=== PATIENT | male | born 1945 | race Caucasian/White ===

== ENCOUNTER 2017-09-12 12:29 | Emergency (ER) | payer MEDICARE, BC ==
[~2017-09-12] VITALS: Ht 175.3 cm; Wt 108.9 kg
[2017-09-12] MEDS ORDERED: Tetanus/Diptheria/Pertussis Vaccine 0.5ml Syr IM ONE (13:00)
--- NOTE | 2017-09-12 14:08 | Emergency Room Report ---
History of Present Illness General Chief Complaint: Laceration Source: Patient Present Illness HPI 72 YO Male S/P mechanical Trip and fall in a parking lot, he C/O left shoulder pain & tenderness in addition to open wound on the left forearm. Pt. denies pain currently. States Pain in his left shoulder is exacerbated to 6/10 in severity upon movement. Reports history of shoulder fracture in the past and states that he has a left elbow implant. Denies left elbow pain. Last tetanus unknown. Denies hitting his head, or LOC. Takes ASA daily. Denies CP, Palpitations, LOC, AMS, dizziness, Changes in Vision, Sensation, paresthesias, or a sudden severe headache. Allergies: Coded Allergies: PENICILLINS (Verified Allergy, Unknown, 09/12/17) Patient History Past Medical History: see triage record, HTN, CAD Pertinent Family History: none Reviewed Nursing Documentation: PMH: Agreed; PSxH: Agreed Nursing Documentation-PMH Past Medical History: No History, Except For Hx Cardiac Problems: Yes Hx Hypertension: Yes Hx Asthma: Yes Review of Systems All Other Systems: negative except mentioned in HPI Physical Exam Vital Signs Date Time Temp Pulse Resp B/P (MAP) Pulse Ox O2 Delivery O2 Flow Rate FiO2 09/12/17 12:36 98.1 85 20 150/87 99 Room Air 98.1 Sp02 EP Interpretation: reviewed, normal General Appearance: alert, GCS 15, non-toxic, mild distress Head: normocephalic, atraumatic ENT: hearing grossly normal, normal voice Neck: full range of motion, no bony tend Respiratory: lungs clear, normal breath sounds, speaking full sentences Cardiovascular #1: regular rate, rhythm, normal capillary refill Musculoskeletal: back normal, gait/station normal, normal range of motion - pain with ROM, tender - Left shoulder laterally. Neurologic: alert, oriented x3, responsive, motor strength/tone normal, sensory intact, normal gait, speech normal, grossly normal Psychiatric: judgement/insight normal Skin: normal color, no rash, warm/dry, well hydrated, laceration - SKIN TEAR : left forearm approximately 3.5 inches in diameter. Procedures Laceration/Wound Repair Laceration/Wound Repair : Consent: Verbal Wound Location: upper extremity - left forearm Wound's Depth, Shape: superficial, flap Wound Length (cm): 7 Wound Explored: contaminated - some gravel visible Irrigated w/ Saline (ccs): 500 Betadine Prep?: No Wound Repaired With: Steri-strips Layer Closure?: No Sterile Dressing Applied?: Yes Sling Applied?: Yes Patient Tolerated: Well Complications: None Medical Decision Making PA Attestation Dr. Mcgowan is my supervising Physician whom patient management has been discussed with. Diagnostic Impression: Primary Impression: Laceration Additional Impressions: Shoulder contusion Qualified Codes: S40.012A - Contusion of left shoulder, initial encounter Fall Qualified Codes: W19.XXXA - Unspecified fall, initial encounter ER Course 72 YO Male S/P mechanical Trip and fall in a parking lot, he C/O left shoulder pain & tenderness in addition to open wound on the left forearm. Pt. denies pain currently. States Pain in his left shoulder is exacerbated to 6/10 in severity upon movement. Reports history of shoulder fracture in the past and states that he has a left elbow implant. Denies left elbow pain. Last tetanus unknown. Denies hitting his head, or LOC. Takes ASA daily. Denies CP, Palpitations, LOC, AMS, dizziness, Changes in Vision, Sensation, paresthesias, or a sudden severe headache. Ddx considered but are not limited to laceration, tendon injury, cellulitis, Skin tear, Fracture, Dislocation contusions. Vital signs: are WNL, pt. is afebrile H&PE are most consistent with: left forearm skin tear. and left shoulder contusion will perform imaging to r/o fractures and d/l. ORDERS: -Left shoulder x-ray: Unremarkable for acute fractures or dislocation, arthritic changes noted. ED INTERVENTIONS: -Tetanus vaccine was administered as pt. vaccination status was unknown. - The wound was copiously irrigated with normal saline, and explored for foreign body for which no FB was found. - The wound was approximated and closed using Steri-Strips - Sterile dressing is applied. Discussed with patient: That we make every effort to approximate the laceration as best as we can so that scarring will be as cosmetically pleasing as possible with our limited cosmetic skill set in the Emergency dept. Regardless of our best efforts there will be scarring after laceration repair. The extent of scarring is unknown at this time. ---- Left arm Sling applied by audiovisual tech. Pt. remains neurovascularly intact. -Pt. given a copy of his X-rays to take with him to his follow up appt. DISCHARGE: At this time pt. is stable for d/c to home. Will provide printed patient care instructions, and any necessary prescriptions. Care plan and follow up instructions have been discussed with the patient prior to discharge. Other X-Ray Diagnostic Results Other X-Ray Diagnostic Results : X-Ray ordered: Left Shoulder # of Views/Limited Vs Complete: 3 View Indication: Pain EP Interpretation: Yes PA Xray: Interpretation reviewed, by supervising MD, and agrees with findings. Interpretation: no dislocation, no soft tissue swelling, no fractures, other - arthritic changes noted Impression: Other - Abnormal: arthritic changes noted Electronically Signed by: Jaclyn Villalobos PA-C Last Vital Signs Date Time Temp Pulse Resp B/P (MAP) Pulse Ox O2 Delivery O2 Flow Rate FiO2 09/12/17 12:36 98.1 85 20 150/87 99 Room Air 98.1 Disposition: HOME, SELF-CARE Condition: Stable Scripts Acetaminophen* (TYLENOL EXTRA STRENGTH*) 500 Mg Tablet 500 MG ORAL Q6H, #20 TAB 0 Refills Prov: Jaclyn Villalobos 09/12/17 Bacitracin/Polymyxin B Sulfate (BACITRACIN-POLYMYXIN OINTMENT) 28.35 Gm Oint...g. 1 APPLIC TP BID, #28.3 GM Prov: Jaclyn Villalobos 09/12/17 Cephalexin* (KEFLEX*) 500 Mg Capsule 500 MG ORAL EVERY 12 HOURS for 7 Days, #14 CAP 0 Refills Prov: Jaclyn Villalobos 09/12/17 Referrals: NON PHYSICIAN (PCP) Patient Instructions: Nonsutured Laceration Care, Skin Tear Care Additional Instructions: Take medications as directed. Follow up with a Primary Care Provider in 3-5 days, even if your symptoms have resolved. --Please review list of primary care clinics, if you do not already have a primary care provider Return sooner to ED if new symptoms occur, or current symptoms become worse. - Please note that this Emergency Department Report was dictated using [employer] machine operator technology software, occasionally this can lead to erroneous entry secondary to interpretation by the dictation equipment. Jaclyn Villalobos Sep 12, 2017 14:08
[2017-09-12] MEDS ORDERED: TYLENOL EXTRA500 MG ORAL (14:10)
[2017-09-12] MEDS ORDERED: CEPHALEXIN500 MG ORAL (14:10)
[2017-09-12] MEDS ORDERED: BACITRACIN-P28.35 GM TP (14:10)
[2017-09-12 14:14] VITALS: BP 143/74
[2017-09-12 14:19] VITALS: BP 143/74
--- NOTE | 2017-09-12 14:29 | Diagnostic Imaging Report ---
Indication: left shoulder pain Findings: 3 views of the left shoulder were obtained. There is evidence of an old fracture of the greater tuberosity. No acute fracture is seen. Alignment is normal. Bones are osteopenic. IMPRESSION: No acute injury identified
== END 2017-09-12 14:19 | disposition home or self-care (01) ==
LOC: EMR 13:45
DX: S51.812A Laceration without foreign body of left forearm, initial encounter (principal); S40.012A Contusion of left shoulder, initial encounter; W01.0XXA Fall on same level from slipping, tripping and stumbling without subsequent striking against object, initial encounter; Y93.9 Activity, unspecified; Y92.481 Parking lot as the place of occurrence of the external cause; Z88.0 Allergy status to penicillin; I10 Essential (primary) hypertension; Z79.82 Long term (current) use of aspirin; Z23 Encounter for immunization; M85.812 Other specified disorders of bone density and structure, left shoulder
CPT/HCPCS: 90471; 90715; 99284